=== PATIENT | male | born 1985 | race Caucasian/White ===

== ENCOUNTER 2022-02-14 06:26 | Emergency (ER) | payer OTHER ==
[~2022-02-14] VITALS: Ht 185.4 cm; Wt 93.2 kg
[2022-02-14 06:26] VITALS: BP 172/87
[2022-02-14] MEDS ORDERED: CYCL10TA19 PO (06:46)
--- NOTE | 2022-02-14 06:46 | PHYS DOC ---
Adult General Chief Complaint Chief Complaint: LOWER BACK PAIN OR INJURY HPI HPI Patient is an otherwise healthy 25-year-old male who presents with low back pain, 7 out of 10, dull and achy in nature. States he was at the gym just before coming to the emergency department and squatting 135 pounds and tweaked his low back. States it hurts worse on the left, feels like a spasm and. States he has done this several times in the past. Denies any numbness/weakness/tingling. Denies any trouble sitting, standing or walking. States he did not take any medications. Review of Systems Review of Systems Review of systems otherwise unremarkable except noted in HPI Current Medications Current Medications Current Medications Medications (Trade) Dose Ordered Sig/Yossi Start Time Stop Time Status Last Admin Dose Admin Acetaminophen (Tylenol) 1,000 mg 1X ONCE 02/14/22 06:45 02/14/22 06:46 UNV Cyclobenzaprine HCl (Flexeril) 10 mg 1X ONCE 02/14/22 06:45 02/14/22 06:46 UNV Ketorolac Tromethamine (Toradol Im) 60 mg 1X ONCE 02/14/22 06:45 02/14/22 06:46 UNV Morphine Sulfate (Morphine 4mg Syringe) 4 mg 1X ONCE 02/14/22 06:45 02/14/22 06:46 Allergies Allergies Allergies Coded Allergies Type Severity Reaction Last Updated Verified amoxicillin Allergy Unknown 02/14/22 Yes Physical Exam Physical Exam Constitutional: Well developed, well nourished, no acute distress, non-toxic appearance. [] HENT: Normocephalic, atraumatic, Neck: Normal range of motion, no tenderness, supple, no stridor. [] Cardiovascular:Heart rate regular rhythm, no murmur [] Lungs & Thorax: No respiratory distress Abdomen: soft, no tenderness, no masses, no pulsatile masses. [] Skin: Warm, dry, no erythema, no rash. [] Back: Mild tenderness bilaterally in the lumbar paraspinal muscles with some spasm, neurovascular exam intact Extremities: No tenderness, no cyanosis, no clubbing, ROM intact, no edema. [] Neurologic: Alert and oriented X 3, normal motor function, normal sensory function, able to sit, stand and walk, no focal deficits noted. [] Psychologic: Affect normal, judgement normal, mood normal. [] Current Patient Data Vital Signs Vital Signs Date Time Temp Pulse Resp B/P (MAP) Pulse Ox O2 Delivery O2 Flow Rate FiO2 02/14/22 06:26 98.0 103 20 172/87 (115) 99 Room Air EKG EKG [] Radiology/Procedures Radiology/Procedures [] Heart Score C/O Chest Pain: No Risk Factors: Risk Factors: DM, Current or recent (<one month) smoker, HTN, HLP, family history of CAD, obesity. Risk Scores: Risk Factors: DM, Current or recent (<one month) smoker, HTN, HLP, family history of CAD, obesity. Course & Med Decision Making Course & Med Decision Making Patient is a 25-year-old male who presents with low back pain Signs not concerning. Physical exam noted above. Given medications for pain and spasm as well as ice pack for inflammation Discussed low back pain management at home. Advised to follow-up with primary care physician Gave return precautions to the ED. Given work note at patient's request. Patient grateful, verbalized understanding and agreed with plan of discharge. [] [] Dragon Disclaimer Dragon Disclaimer This electronic medical record was generated, in whole or in part, using a voice recognition dictation system. Departure Departure: Impression: Primary Impression: Back pain Disposition: HOME / SELF CARE / HOMELESS Condition: STABLE Referrals: PCP,SIOBHAN (PCP) NEMESIO HERNANDEZ MD Patient Instructions: Back Pain, Adult Additional Instructions: Thank you for coming into the emergency department tonight and allowing us to take care of you. Please read the attached information carefully to go over things we discussed. Please begin a regimen of 1000 mg of Tylenol every 8 hours, 800 mg of ibuprofen every 8 hours, 50 mg of Benadryl every 6 hours and use of your ice pack as we discussed. As we discussed, please do not be sedentary, try to get up and walk and do light stretching several times daily. Please follow-up first thing with your primary care physician this morning update on your ED visit and set up a follow-up for reevaluation later in the week. Please come back with new or concerning symptoms as we discussed. Scripts Cyclobenzaprine Hcl (CYCLOBENZAPRINE HCL) 10 Mg Tablet 1 TAB PO BID PRN for MUSCLE SPASMS, #15 TAB Prov: MALCOLM ROTHMAN MD 02/14/22 MALCOLM ROTHMAN MD Feb 14, 2022 06:46
[2022-02-14] MEDS: MORPHINE SULFATE 4 MG/ML DISP.SYRIN. IM ONE (06:49)
[2022-02-14] MEDS: KETOROLAC 60 MG/2 ML VIAL. IM ONE (06:51)
[2022-02-14] MEDS: CYCLOBENZAPRINE 10 MG TABLET. PO ONE (06:53)
[2022-02-14] MEDS: ACETAMINOPHEN 500 MG TABLET PO ONE (06:53)
== END 2022-02-14 09:00 | disposition home or self-care (01) ==
LOC: ER 06:26
DX: M54.59 Other low back pain (principal); M62.830 Muscle spasm of back; Z88.1 Allergy status to other antibiotic agents
CPT/HCPCS: 96372; 99284; J1885; J2270